=== PATIENT | female | born 1965 | race Caucasian/White ===

== ENCOUNTER 2025-03-19 09:02 | Outpatient (CLI) | payer OTHER, SELFPAY ==
--- OUTSIDE RECORDS SUMMARY | 2025-03-19 09:07 | XMS_ITS | Clinical Summary ---
Author Organization [facility] Address [address] [place] [address] Care Team Providers Care Mock Up Maker Name Role Phone Josi Sharma APRN Primary Care Pro vider Allergies Active Allergy Reactions Criticality Noted Date Comments Clarithromycin 03/11/2014 Meloxicam 03/11/2014 Nabumetone 03/11/2014 Naproxen 03/11/2014 Medications sertraline (ZOLOFT) 100 MG tablet Take 100 mg by mouth Daily. 03/11/2014 Active busPIRone (BUSPAR) 15 MG tablet Take 7.5 mg by mouth 3 (Three) Times a Day. Active Family History Medical History Relation Name Comments Cancer Father Diabetes Mother Heart disease Mother Relation Name Status Comments Father Mother Social History Tobacco Use Types Packs/Day Years Used Date Smoking Tobacco: Never Alcohol Use Standard Drinks/Week Comments No 0 (1 standard drink = 0.6 oz pur e alcohol) Abuse Screen Answer Date Recorded Unsafe at Home or Work/School Not on file Feels Threatened by Someone? Not on file 01/2023 Does Anyone Keep You from Co ntacting Others or Doint Things Outside the Home? Not on file 02/14/2023 Physical Sign of Abuse Present Not on file 1 Housing Stability Answer Date Recorded Current Living Arrangements Not on file 01/2023 Potentially Unsafe Housing Conditions Not on fela e 02/14/2023 Family and Community Support Answer Rohit e Recorded Help with Day-to-Day Activities Not on file 02/14/2023 Lonely or Isolated Not on file 02/14/2023 Employment Answer Date Recorded Do you want help finding or keeping work or a lizy b? Not on file 02/14/2023 Disabilities Answer Date Recorded Concentrating, Remembering, or Making Decisions Difficulty Not on file 02/14/2023 Doing Errands Independently Difficulty Not on fi le 02/14/2023 Education Answer Date Recorded Help with school or training? Not on file Preferred Language Not on file 02/14/2023 Comments No Sex and Gender Information Value Date Recorded Sex Assigned at Not on file Legal Sex Female 4:51 PM EDT Gender Identity Not on file Sexual Orientation Not on file Last Filed Vital Signs Vital Sign Reading Time Taken Comments Blood Pressure 110/70 06/18/2016 11:13 AM EST Pulse 86 06/18/2016 11:13 AM EST Temperature 36.9 C (98.5 F) 06/18/2016 11:13 AM EST Respiratory Rate 16 06/18/2016 11:13 AM EST Oxygen Saturation 97% 06/18/2016 11:13 AM EST Inhaled Oxygen Concentration - - Weight 88 kg (194 lb) 06/18/2016 11:13 AM EST Height 177.8 cm (5' 10 ) 03/11/2014 3:06 PM EST Body Mass Index 27.84 03/11/2014 3:06 PM EST Plan of Treatment Health Maintenance Due Date Last Done Comments ANNUAL PHYSICAL 1967 Annual Gynecologic Pelvic and Breast Exam 1965 HEPATITIS C SCREENING 1967 TDAP/TD VACCINES (1 - Tdap) 12/03/1986 MAMMOGRAM 2007 COLOGUARD 12/03/2012 COLON CANCER SCREENING 5 YEAR SIGMOIDOSCOPY 12/03/2012 COLONOSCOPY 12/03/2012 COLORECTAL CANCER SCREENING 12/03/2012 CT COLONOGRAPHY 12/03/2012 FECAL OCCULT BLOOD TEST 12/03/2012 FIT Testing (1 year) 12/03/2012 Pneumococcal Vaccine 50+ (1 of 1 - PCV) 12/03/2017 ZOSTER VACCINE (1 of 2) 12/03/2017 INFLUENZA VACCINE 12/07/2024 Care Teams Mock Up Maker Relationship Specialty Start Date End Date Josi Sharma APRN [address] [place] [address] PCP - General Internal Medicine 06/18/16
[2025-03-19 09:22] LABS: Hematocrit 38.3 % (37.0-47.0); Hemoglobin 12.7 g/dL (12.2-16.2); Immature Granulocytes % 0.5 %; Mean Corpuscular HGB Conc 33.2 g/dL (31.8-35.4); Mean Corpuscular Hemoglobin 31.4 pg (27.0-31.2); Mean Corpuscular Volume 94.8 fl (81-99); Nucleated Red Blood Cells % 0 %; Platelet Count 351 K/mm3 (142-424); Red Blood Count 4.04 M/mm3 (4.20-5.40); Red Cell Distribution Width-SD 46.8 fL; White Blood Count 6.3 K/mm3 (4.8-10.8)
[2025-03-19 10:02] LABS: Alanine Aminotransferase 21 U/L (12-78); Albumin Level 4.0 g/dl (3.5-5.0); Albumin/Globulin Ratio 1.4 (1.1-1.8); Alkaline Phosphatase 47 U/L (38-126); Anion Gap 9.0 mEq/L (5-15); Aspartate Amino Transferase 28 U/L (14-36); Bilirubin,Total 0.8 mg/dl (0.2-1.3); Blood Urea Nitrogen 21 mg/dl (7-17); Calcium 9.0 mg/dl (8.4-10.2); Carbon Dioxide 30 mmol/L (22.0-30.0); Chloride 103 mmol/L (98-107); Creatinine,Serum 0.70 mg/dl (0.52-1.04); Estimated Glomerular Filt Rate 86 ml/min (>60); GFR (African American) 104 ML/MIN (>60); Globulin 2.8 g/dL (1.3-3.2); Glucose 85 mg/dl (74-100); Potassium 4.0 mmoL/L (3.5-5.1); Sodium 138 mmol/L (136-145); Total Protein,Serum 6.8 g/dl (6.3-8.2)
[2025-03-21 15:12] LABS: Deamidated Gliadin Abs, IgA 7 units (0-19); Deamidated Gliadin Abs, IgG 3 units (0-19)
[2025-03-21 18:14] LABS: Pancreatic Elastase, Fecal >800 (>200)
== END 2025-03-19 23:59 | disposition home or self-care (01) ==
LOC: LAB 09:05
PROVIDERS: Visit Provider Internal Medicine Gastroenterology
DX: K74.69 Other cirrhosis of liver (principal); B19.20 Unspecified viral hepatitis C without hepatic coma; R14.0 Abdominal distension (gaseous); R14.3 Flatulence
CPT/HCPCS: 36415; 80053; 82653; 85025; 86231; 86256; 86258; 86364; 86671